=== PATIENT | male | born 1960 | race Asian ===

== ENCOUNTER 2020-11-24 06:29 | Day surgery (SDC) | payer OTHER ==
[~2020-11-24] VITALS: Ht 165.1 cm; Wt 65.8 kg
[2020-11-24] MEDS ORDERED: diphenhydrAMINE 50 MG/ML VIAL ONE (08:04)
[2020-11-24] MEDS ORDERED: fentaNYL citrate 0.05 MG/ML VIAL ONE (08:04)
[2020-11-24] MEDS ORDERED: MIDAZOLAM 5 MG/5 ML VIAL ONE (08:05)
[2020-11-24] MEDS: MIDAZOLAM 2 MG/2 ML VIAL IVP ONE (08:10)
[2020-11-24] MEDS: fentaNYL citrate 0.05 MG/ML VIAL IVP ONE (08:11)
== END 2020-11-24 09:25 | disposition home or self-care (01) ==
LOC: MDS 06:29 → MMU 06:31 → MDS 09:25
PROVIDERS: ATTEND Internal Medicine Gastroenterology
DX: K62.5 Hemorrhage of anus and rectum (principal); K52.9 Noninfective gastroenteritis and colitis, unspecified; K29.70 Gastritis, unspecified, without bleeding; K21.00 Gastro-esophageal reflux disease with esophagitis, without bleeding; F17.210 Nicotine dependence, cigarettes, uncomplicated; K30 Functional dyspepsia; B19.10 Unspecified viral hepatitis B without hepatic coma; Z79.899 Other long term (current) drug therapy
CPT/HCPCS: 43239; 45380; J2250; J3010; J1200

== ENCOUNTER 2022-11-15 07:53 | Day surgery (SDC) | payer MEDICAID ==
[~2022-11-15] VITALS: Ht 162.6 cm; Wt 65.8 kg
[2022-11-15] MEDS ORDERED: LIDOCAINE 2% 100 MG/5 ML UJET TP ONE (08:47)
[2022-11-15] MEDS ORDERED: MIDAZOLAM 5 MG/5 ML VIAL ONE (08:47)
[2022-11-15] MEDS ORDERED: diphenhydrAMINE 50 MG/ML VIAL ONE (08:47)
[2022-11-15] MEDS ORDERED: fentaNYL citrate 0.05 MG/ML VIAL ONE (08:47)
[2022-11-15] MEDS ORDERED: MIDAZOLAM 2 MG/2 ML VIAL IVP ONE (09:35)
[2022-11-15] MEDS ORDERED: fentaNYL citrate 0.05 MG/ML VIAL IVP ONE (09:35)
== END 2022-11-15 10:30 | disposition home or self-care (01) ==
LOC: MOR 07:53 → MMU 08:00 → MOR 10:30
PROVIDERS: ATTEND Internal Medicine Gastroenterology
DX: Z12.11 Encounter for screening for malignant neoplasm of colon (principal); K52.9 Noninfective gastroenteritis and colitis, unspecified
CPT/HCPCS: 45380; 88305; J2250; J3010; J1200